=== PATIENT | female | born 1965 | race Caucasian/White ===

== ENCOUNTER → 2019-11-22 12:24 | Outpatient (CLI) | payer MEDICAID, SELFPAY ==
[2019-11-22 13:45] LABS: Basophils # 0.1 K/mm3 (0-0.2); Basophils % 0.6 % (0.1-2.0); Eosinophils # 0.1 K/mm3 (0.0-0.4); Eosinophils % 0.8 % (0.1-12.0); Hematocrit 42.3 % (37.0-47.0); Hemoglobin 14.9 g/dL (12.2-16.2); Lymphocytes # 2.3 K/mm3 (0.7-4.5); Lymphocytes % 29.8 % (10-50); Mean Corpuscular HGB Conc 35.2 g/dL (31.8-35.4); Mean Corpuscular Hemoglobin 32.3 pg (27.0-31.2); Mean Corpuscular Volume 91.7 fl (81-99); Mean Platelet Volume 8.2 fl (7.4-10.4); Monocytes # 0.4 K/mm3 (0.1-1.0); Monocytes % 4.9 % (1.7-9.3); Neutrophils # 4.9 K/mm3 (1.8-7.8); Neutrophils % 63.8 % (37.0-80.0); Platelet Count 320 K/mm3 (142-424); Red Blood Count 4.62 M/mm3 (4.20-5.40); Red Cell Distribution Width 13.3 % (11.5-17.5); White Blood Count 7.6 K/mm3 (4.8-10.8)
[2019-11-22 15:38] LABS: Chloride 103 mmol/L (98-107); Potassium 4.4 mmoL/L (3.5-5.1); Sodium 141 mmol/L (136-145)
[2019-11-22 15:40] LABS: Bilirubin,Unconjugated 0.4 mg/dL (0.0-1.1); Blood Urea Nitrogen 15 mg/dl (7-17); Estimated Glomerular Filt Rate 87 ml/min (>60); GFR (African American) 105 ML/MIN (>60)
[2019-11-22 15:41] LABS: Alanine Aminotransferase 22 U/L (12-78); Albumin Level 4.7 g/dl (3.5-5.0); Alkaline Phosphatase 134 U/L (38-126); Anion Gap 12.4 mEq/L (5-15); Aspartate Amino Transferase 27 U/L (14-36); Bilirubin,Indirect 0.4 mg/dL (0.0-0.9); Bilirubin,Total 0.4 mg/dl (0.2-1.3); Calcium 9.9 mg/dl (8.4-10.2); Carbon Dioxide 30 mmol/L (22.0-30.0); Chol/HDL Ratio 5.4 (1-3.5); Cholesterol 245 mg/dl (140-200); Glucose 86 mg/dl (74-100); HDL Cholesterol 45 mg/dl (40-60); Triglycerides 189 mg/dl (30-150); VLDL Cholesterol 38 mg/dL (0-40)
[2019-11-22 15:53] LABS: Direct LDL Cholesterol 171.98 mg/dL (100-129)
[2019-11-22 16:12] LABS: Thyroid Stimulating Hormone 2.09 uIU/mL (0.465-4.68)
== END ==
PROVIDERS: PCP Nurse Practitioner Family; Visit Provider Internal Medicine Cardiovascular Disease
DX: R00.2 Palpitations (principal); R06.00 Dyspnea, unspecified; R42 Dizziness and giddiness; R55 Syncope and collapse; E78.5 Hyperlipidemia, unspecified; I10 Essential (primary) hypertension; F17.200 Nicotine dependence, unspecified, uncomplicated
CPT/HCPCS: 36415; 80048; 80061; 80076; 84439; 84443; 85025; 93270

== ENCOUNTER → 2019-11-28 11:57 | Outpatient (CLI) | payer MEDICAID, SELFPAY ==
--- NOTE | 2019-11-28 11:59 | CA_ITS ---
APPROVED REPORT Membership Administrator: VLADIMIR Laterality: Bilateral Study Quality: Good Indications: dizziness Doppler Spectral Velocity Analysis dICA (R) 81.30/33.70 cm/s dICA (L) 80.60/35.70 cm/s Emmanuelle (R) 86.70/36.80 cm/s Emmanuelle (L) 67.20/31.90 cm/s pICA (R) 75.70/27.50 cm/s pICA (L) 69.70/25.00 cm/s dCCA (R) 58.20/18.10 cm/s dCCA (L) 69.00/26.90 cm/s pCCA (R) 147.10/45.30 cm/s pCCA (L) 70.30/25.30 cm/s Vert (R) 56.10/17.10 cm/s Vert (L) 44.90/20.00 cm/s ICA/CCA 1.40 ICA/CCA 1.20 Findings Duplex evaluation demonstrates stenosis of the right proximal internal carotid artery <20% with PSV <140 cm/sec, EDV <100 cm/sec, and IC/CC Ratio <4.0.Duplex evaluation demonstrates stenosis of the left proximal internal carotid artery <20% with PSV <140 cm/sec, EDV <100 cm/sec, and IC/CC Ratio <4.0.Antegrade flow seen bilateral vertebral arteries. Conclusion Duplex evaluation demonstrates stenosis of the right proximal internal carotid artery <20% with PSV <140 cm/sec, EDV <100 cm/sec, and IC/CC Ratio <4.0.Duplex evaluation demonstrates stenosis of the left proximal internal carotid artery <20% with PSV <140 cm/sec, EDV <100 cm/sec, and IC/CC Ratio <4.0.Antegrade flow seen bilateral vertebral arteries. Electronically signed by : Rolf Wahl MD 11/28/2019 16:06:28
--- NOTE | 2019-11-28 11:59 | CA_ITS ---
APPROVED REPORT EXAM: Comprehensive 2D, Doppler, and color-flow Echocardiogram Appeals Referee: Kira Zhao RDCS Ht: 5 ft 1 in Wt: 117lbs BSA: 1.50 BP: 110/66 mmHg Indications: SOA,SMOKER,HTN,HLP,DIZZINESS 2D Dimensions LVOT 2.18 cm (M/F) 1.5-2.5 M-Mode Dimensions RVDd 2.79 cm (0.9-2.6) LVDd 4.47 cm (3.5-5.7) LVDs 2.75 cm (3.5-5.7) IVSd 0.82 cm (0.6-1.1) PWd 0.89 cm (0.6-1.1) EF (Teich) 68.90% FS 38.50% EDV (Teich) 91.00 mL ESV (Teich) 28.30 mL LV Diastology E/A Ratio 0.87 Mitral Valve MV A Velocity 71.00 (40-130 cm/s) Left Ventricle Left atrium is mildly enlarged, left ventricle is normal size, mild concentric left ventricular hypertrophy, visually estimated ejection fraction 55% with no regional wall motion abnormality, grade 1 diastolic dysfunction seen without tissue Doppler evidence of raise left atrial pressure. Right Ventricle Right atrium is normal size, right ventricle is mildly enlarged with normal contractility. Aortic Valve Aortic valve is minimally thickened and fibrosed, there is no aortic stenosis, there is mild aortic insufficiency. Mitral Valve Mitral valve is grossly normal, there is mild mitral regurgitation. Tricuspid Valve Tricuspid valve is grossly normal, there is mild tricuspid regurgitation, calculated right ventricular systolic pressure is 32 mmHg. Pulmonic Valve Pulmonic valve is poorly visualized. Great Vessels Aortic root is normal size. Pericardium No significant pericardial effusion noted. Conclusion 1. Mildly enlarged left atrium, normal left ventricular size, mild concentric left ventricular hypertrophy, visually estimated ejection fraction of 55% with no regional wall motion abnormality, grade 1 diastolic dysfunction seen without tissue Doppler evidence of raise left atrial pressure. 2. Mildly enlarged right ventricle with normal contractility. 3. Mild aortic, mild mitral and tricuspid regurgitation. Calculated right ventricular systolic pressure 32 mmHg. 4. No significant pericardial effusion noted. Electronically signed by : Mario Lucio, 11/29/2019 13:44:51
--- NOTE | 2019-11-28 12:07 | CT_ITS ---
PROCEDURE: CT CHEST WO CON CLINICAL INDICATION: tob abuse dyspnea episodes of heart flutter, soa current smoker no prior COMPARISON: No exams were available for comparison TECHNIQUE: Axial images obtained with sagittal and coronal reformats. All CT scans at the facility use one or more dose reduction, viz: automated exposure control, ma/kV adjustment per patient size (including targeted exams where dose is matched to indication, i.e. head), or iterative reconstruction technique. FINDINGS: HEART AND MEDIASTINAL STRUCTURES: Unremarkable. LUNGS AND PLEURAL SPACES: Inflation with attenuation of the peripheral pulmonary vessels suggesting COPD. No lobar consolidation or collapse. No suspicious pulmonary nodules. There are minimal atelectatic changes in the right middle lobe medially. There is a calcified granuloma in the right lower lobe. BONY STRUCTURES: Small Schmorl's node is present along the superior endplate of T12. UPPER ABDOMEN: There is thickening of the esophagus and gastroesophageal junction. This is nonspecific and may only be due to nondistention. Neoplasm or esophagitis is also considered in the differential diagnosis. Barium swallow or upper endoscopy may provide further evaluation. There is a 3 mm nonobstructing stone in the upper pole of the right kidney ADDITIONAL FINDINGS: A nodular density is present in the subareolar region on the right of the right breast measuring 9 mm. Mammogram and ultrasound suggested for further evaluation. IMPRESSION: 1. Findings consistent with COPD. Minimal atelectatic change right middle lobe. 2. Nonspecific thickening of the esophagus as described above. 3. 9 mm nodular lesion in the subareolar region on the right for which ultrasound and mammogram is suggested for further evaluation. 4. Nonobstructing right nephrolithiasis Dictated by: Rolf Wahl MD 11/29/2019 11:40 Rolf Wahl MD in [place] 11/29/2019 11:40
== END ==
PROVIDERS: PCP Nurse Practitioner Family; Visit Provider Internal Medicine Cardiovascular Disease
DX: R00.2 Palpitations (principal); R06.00 Dyspnea, unspecified; R55 Syncope and collapse; R42 Dizziness and giddiness; I10 Essential (primary) hypertension; E78.5 Hyperlipidemia, unspecified; F17.200 Nicotine dependence, unspecified, uncomplicated
CPT/HCPCS: 71250; 93306; 93880

== ENCOUNTER 2022-05-28 07:55 | Emergency (ER) | payer SELFPAY ==
[2022-05-28] VITALS (9 sets, daily range): BP systolic 137–177; BP diastolic 77–105; PULSE 62–89; RESP 12–20; TEMP 36.7–36.8; O2SAT 96–98; BMI 24.5
--- NOTE | 2022-05-28 08:00 | ECG_ITS ---
APPROVED REPORT Exam: Resting ECG HR:88 bpm ECG Measurements Heart Rate 88 AXES ND 149 P 72 QRSd 82 QRS 73 QT 336 T 80 QTc 382 Conclusion SINUS RHYTHM POSSIBLE RIGHT VENTRICULAR CONDUCTION DELAY [RSR (QR) IN V1/V2] SEPTAL MYOCARDIAL INFARCTION , OF INDETERMINATE AGE [40+ ms Q WAVE IN V1/V2] ABNORMAL ECG UNCONFIRMED REPORT Electronically signed by : Mark Pelayo MD 05/28/2022 15:12:53
--- NOTE | 2022-05-28 08:15 | PC.NURSE ---
ER at BS for pt sari; Spouse at BS
--- NOTE | 2022-05-28 08:28 | PC.NURSE ---
at bs with MD, discussing bp. PT states she is dizzy but has been for months, this is no new symptom. denies any GLASER, new dizziness, chest pain at this time.
[2022-05-28 08:30] LABS: Blood Urea Nitrogen 21 mg/dl (7-17); Calcium 9.5 mg/dl (8.4-10.2); Carbon Dioxide 29 mmol/L (22.0-30.0); Chloride 102 mmol/L (98-107); Creatinine Clearance Estimated 71 mL/min (50-200); Estimated Glomerular Filt Rate 74 ml/min (>60); GFR (African American) 89 ML/MIN (>60); Glucose 108 mg/dl (74-100); Sodium 139 mmol/L (136-145)
--- NOTE | 2022-05-28 08:32 | HMH.EDGENADL ---
Discharge Plan Disposition Patient Disposition: Home, Self-Care Condition: Good Prescriptions Prescriptions: No Action lisinopril 20 mg tablet 20 mg PO DAILY propranolol 20 mg tablet 20 mg PO BID Qty: 60 3RF rosuvastatin [Crestor] 20 mg tablet 20 mg PO DAILY Referrals Follow up/Referrals: Provider,Referral, [Primary Care Provider] - See instructions Activity Restrictions/Add. Instructions Additional Instructions/Restrictions: Increase your metoprolol from 25 to 37.5 daily. Follow-up with your primary care provider regarding this change and continue taking your blood pressure twice daily (morning and night). If you have any other concerning symptoms including headache, passing out, chest pain, shortness of breath, or any other concerns, return to the ER or your primary care provider for further evaluation. Clinical Impressions Clinical Impression: HTN (hypertension) Qualifiers: Hypertension type: unspecified Qualified Code(s): I10 - Essential (primary) hypertension Discharge ED Provider: Baltazar Shields General Adult HPI General Chief complaint: Chest Pain Stated complaint: High BP Time Seen by Provider: 05/28/22 07:58 Mode of Arrival: Ambulatory Source of Information: Patient Limitations: No Limitations Description of Symptoms (Recalled from ER Triage Doc. by RN): pt comes in with high blood pressure. pt reports feeling lightheaded for a few weeks now. pt had echo done yesterday in [place], when her blood pressure was taken there it was elevated. pt took blood pressure this am and it was elevated. pt became anxious and felt heart palpitations. pt took metoprolol 25 mg approx. 0745. History of Present Illness HPI narrative: This is a 56-year-old female with history of hypertension, hyperlipidemia, peripheral vertigo, anxiety who is presenting with high blood pressure. Patient states that she was seen for cardiac echo a few days prior to arrival and while she was there, they took her blood pressure and told her that it was too high and to follow-up with her primary care provider. She has since followed up 4 days prior to arrival and was started on metoprolol 25. Patient had a blood pressure cuff 2 days prior to arrival and has been taking it when she wakes up and realizing that her blood pressure was high, so comes to the ER for further evaluation. Denies chest pain, nausea, vomiting, diaphoresis, neurologic deficits, abdominal pain, back pain, flank pain, syncope, near syncope, headache, vision changes, or any other concerns. Related Data Home Medications Medication Instructions Recorded Confirmed lisinopril 20 mg tablet 20 mg PO DAILY High blood pressure 11/22/19 05/28/22 rosuvastatin 20 mg tablet (Crestor) 20 mg PO DAILY Cholesterol 05/28/22 05/28/22 Previous Rx's Medication Instructions Recorded propranolol 20 mg tablet 20 mg PO BID #60 tabs 11/22/19 Allergies Allergy/AdvReac Type Severity Reaction Status Date / Time No Known Allergies Allergy Verified 05/28/22 08:15 [facility] Disclaimer: The information contained in this section may have been updated after the patient was seen, as this information can be updated by other users. Social History Smoking Status: Current every day smoker alcohol intake: never current occupational status: employed Travel in the last 8 weeks: Inside the [place] ROS Obtained: Yes All systems reviewed & no additional complaints except as documented Physical Exam General General appearance: alert, in no apparent distress and anxious Head Head exam: atraumatic, normocephalic and normal inspection Eye Eye exam: Present normal appearance, PERRL and EOMI ENT ENT exam: Present normal exam, normal oropharynx, mucous membranes moist, TM's normal bilaterally and normal external ear exam Neck Neck exam: Present normal inspection, full ROM and trachea midline; Absent meningismus or l
[2022-05-28 08:33] LABS: Basophils # 0.1 K/mm3 (0-0.2); Basophils % 1.9 % (0.1-2.0); Eosinophils # 0.1 K/mm3 (0.0-0.4); Eosinophils % 1.7 % (0.1-12.0); Hematocrit 50.1 % (37.0-47.0); Hemoglobin 16.7 g/dL (12.2-16.2); Lymphocytes # 2.2 K/mm3 (0.7-4.5); Lymphocytes % 30.2 % (10-50); Mean Corpuscular HGB Conc 33.4 g/dL (31.8-35.4); Mean Corpuscular Hemoglobin 30.9 pg (27.0-31.2); Mean Corpuscular Volume 92.6 fl (81-99); Mean Platelet Volume 8.8 fl (7.4-10.4); Monocytes # 0.4 K/mm3 (0.1-1.0); Monocytes % 5.6 % (1.7-9.3); Neutrophils # 4.3 K/mm3 (1.8-7.8); Neutrophils % 60.7 % (37.0-80.0); Platelet Count 297 K/mm3 (142-424); Red Blood Count 5.41 M/mm3 (4.20-5.40); Red Cell Distribution Width 13.1 % (11.5-17.5); White Blood Count 7.1 K/mm3 (4.8-10.8)
--- NOTE | 2022-05-28 08:34 | PC.NURSE ---
pt ambulatory to the restroom without complications; spouse at BS
--- NOTE | 2022-05-28 08:37 | PC.NURSE ---
called pharmacy for metoprolol
[2022-05-28 08:43] LABS: Troponin I < 0.01 ng/ml (0.00-0.034)
--- NOTE | 2022-05-28 09:33 | PC.NURSE ---
KRISTIE ARIAS at for update on POC
== END 2022-05-28 09:49 | disposition home or self-care (01) ==
PROVIDERS: Emergency Provider Emergency Medicine
DX: I10 Essential (primary) hypertension (principal)
CPT/HCPCS: 80048; 84484; 85025; 93005; 99284; 99285

== ENCOUNTER → 2022-08-26 14:31 | Outpatient (CLI) | payer SELFPAY ==
--- NOTE | 2022-08-26 14:35 | US_ITS ---
FINAL REPORT TECHNIQUE: Ultrasound images of the kidneys and bladder were obtained. CLINICAL HISTORY: PRIMARY HYPERTENSION FINDINGS: The right kidney measures 8.6 cm in length. It is normal in echogenicity. There is no hydronephrosis. In the right upper pole there is an echogenic focus that may represent a nonobstructing renal stone. The left kidney measures 9.5 cm in length. It is normal in echogenicity. There is no hydronephrosis. IMPRESSION: No hydronephrosis. Right upper pole echogenic focus that may represent a nonobstructing renal stone. Reviewed, Interpreted and Dictated by Lane Lawrence III, MD Transcribed by Ruby Carbajal Authenticated and [facility]
== END ==
PROVIDERS: PCP Family Medicine; Visit Provider Family Medicine
DX: I10 Essential (primary) hypertension (principal)
CPT/HCPCS: 76770

== ENCOUNTER → 2022-12-02 12:41 | Outpatient (CLI) | payer SELFPAY ==
--- NOTE | 2022-12-02 | CA_ITS ---
FINAL REPORT TECHNIQUE: Real-time imaging was performed of the extracranial carotid arteries in transverse and longitudinal planes, with color duplex evaluation of blood flow velocity. Spectral analysis was performed. The cervical vertebral arteries were also examined. CLINICAL HISTORY: ringing in ears, smoker COMPARISON: None FINDINGS: NASCET technique is utilized for stenosis evaluation. Right carotid system (centimeters/second): CCA: 77 ICA: 91 Vertebral artery: Antegrade ICA/CCA ratio: 1.78 Mild plaque is identified at the bifurcation. Left carotid system (centimeters/second): CCA: 61 ICA: 106 Vertebral artery: Antegrade ICA/CCA ratio: 1.93 Mild plaque is identified at the bifurcation. IMPRESSION: <50% right ICA stenosis. <50% left ICA stenosis. Reviewed, Interpreted and Dictated by Floyd Dorado MD Transcribed by Paty Blanca Authenticated and [facility]
== END ==
PROVIDERS: PCP Family Medicine; Visit Provider Family Medicine
DX: R42 Dizziness and giddiness (principal); I10 Essential (primary) hypertension
CPT/HCPCS: 93880

== ENCOUNTER 2023-11-03 07:27 | Outpatient (CLI) | payer SELFPAY ==
--- NOTE | 2023-11-03 07:33 | CA_ITS ---
APPROVED REPORT EXAM: Comprehensive 2D, Doppler, and color-flow Echocardiogram Gang Boss: Lori Shea CRT Ht: 5 ft 2 in Wt: 130lbs BSA: 1.59 BP: 131/72 mmHg Indications: Shortness of Breath, Palpitations, Hyperlipidemia, Hypertension/HDD, Smoker 2D Dimensions Left Atrium 3.16 cm LVEF (Schafer's) 63.60 % LVOT 1.88 cm (M/F) 1.5-2.5 LV Volume 63.20 mL LA Volume 23.70 mL LA Volume Index 14.90 mL/m2 (M/F) 16-34 EF AP4 69.80 % EF AP2 56.6 % EF BP 63.6 % GL Strain -20.9 % M-Mode Dimensions RVDd 2.45 cm (0.9-2.6) LVDd 3.75 cm (3.5-5.7) Ao Diam 3.66 cm (2.0-3.7) LVDs 2.31 cm (3.5-5.7) IVSd 1.25 cm (0.6-1.1) PWd 0.91 cm (0.6-1.1) EF (Teich) 69.50% FS 38.40% EDV (Teich) 60.00 mL ESV (Teich) 18.30 mL LV Diastology MED E' 10.5 (>= 7 cm/sec) MED A' 13.70 cm/s LAT E' 6.8 (>= 10 cm/sec) LAT A' 10.20 cm/s Aortic Valve AoV Peak Mich. 127.0 (50-130 cm/s) AI PHT 644.00 ms AO Peak GR. 6.50 mmHg Tricuspid Valve TR P. Velocity 234.00 cm/s RAP Estimate 10.00 mmHg RVSP 32.00 mmHg Left Ventricle The left ventricle is normal size. The left ventricular systolic function is normal. The left ventricular ejection fraction is within the normal range. There is increased LV wall thickness. There is normal LV segmental wall motion. Transmitral Doppler flow pattern suggests impaired LV relaxation. LVEF is 55%. Right Ventricle Right ventricle is mildly dilated. The right ventricular systolic function is normal. Atria Left atrium is mildly dilated. Right atrium is mildly dilated. There is no Doppler evidence of interatrial shunt. Aortic Valve The aortic valve is mildly thickened. There is no aortic valvular stenosis. Mild aortic regurgitation. Mitral Valve The mitral valve leaflets are mildly thickened. No evidence of mitral valve stenosis. Trace mitral regurgitation. Tricuspid Valve The tricuspid valve leaflets are thin and pliable. Mild tricuspid regurgitation. RVSP is 25-30 mmHg. Pulmonic Valve The pulmonary valve is normal in structure. Trace pulmonic regurgitation. Great Vessels The aortic root is normal in size. The ascending aorta is normal in size. IVC is normal in size and collapses >50% with inspiration. Pericardium There is no pericardial effusion. Other Information Study Quality: Fair Conclusion Normal biventricular systolic function. Mild RV dilation. Mild biatrial dilation. Mild AI, mild TR. RVSP 25-30 mmHg. Electronically signed by : Leydi Bocanegra MD 11/08/2023 11:52:24
== END 2023-11-03 23:59 | disposition home or self-care (01) ==
LOC: RT 07:28
PROVIDERS: PCP Family Medicine; Visit Provider Nurse Practitioner Family
DX: I35.1 Nonrheumatic aortic (valve) insufficiency (principal); I10 Essential (primary) hypertension; R42 Dizziness and giddiness
CPT/HCPCS: 93306

== ENCOUNTER 2024-08-01 07:32 | Outpatient (CLI) | payer SELFPAY ==
--- NOTE | 2024-08-01 | MM_ITS ---
PROCEDURE INFORMATION: Exam: MG Bilateral Screening 3D Mammography Exam date and time: 08/01/2024 8:06 AM Age: 59 years old Clinical indication: Screening examination TECHNIQUE: Imaging protocol: Bilateral Screening tomosynthesis and 2D mammography including computer-aided detection (CAD) when performed. COMPARISON: 1. MG MY Digital Nakul Screen BILAT 01/12/2018 9:44 AM 2. US - MY US Breast LTD RT 01/24/2018 10:36 AM FINDINGS: MAMMOGRAPHY: Breast composition: There are scattered areas of fibroglandular density. Mass: 0.7 cm mass upper inner left breast middle depth. Architectural distortion: None. Calcifications: No suspicious calcifications. Asymmetric density: None. Skin thickening: None. Axillary adenopathy: None. IMPRESSION: Subcentimeter left breast mass. Recommend further evaluation with left breast ultrasound ASSESSMENT: BI-RADS Category 0: Incomplete- Need Additional Imaging Evaluation.
== END 2024-08-01 23:59 | disposition home or self-care (01) ==
LOC: RAD 07:33
PROVIDERS: PCP Family Medicine; Visit Provider Family Medicine
DX: Z12.31 Encounter for screening mammogram for malignant neoplasm of breast (principal); N63.22 Unspecified lump in the left breast, upper inner quadrant; R92.323 Mammographic fibroglandular density, bilateral breasts
CPT/HCPCS: 77063; 77067

== ENCOUNTER 2024-09-02 12:17 | Outpatient (CLI) | payer SELFPAY ==
--- OUTSIDE RECORDS SUMMARY | 2024-07-26 12:00 | XMS_ITS ---
Author Organization [facility] Address [address] 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 Name Role Phone Capri Ward Unavailable [phone] Will Montiel Unavailable [phone] Allergies No Known Allergies REASON FOR VISIT BP running high Medications Medication SIG (Take, Route, Frequency, Duration) Notes Start Date End Date Status Rosuvastatin Calcium 20 MG 1 tab(s) oral ly once a day Active Triamterene-HCTZ 37.5-25 MG 1 tablet in the morning Orally Once a day Active Lisinopril 20 MG 2 tab(s) orally At B ed Time Active Metoprolol Succinate ER 50 MG 2 tabs Orally Once a day Act deanne Vitamin B12 1000 MCG 1 tablet Orally Onc e a day 03/10/2023 Active Social History Tobacco Use: Social History Observation Description Date Details (start date - stop date) Current Smoker NA - NA CURRENT TOBACCO USE: Question Answer Notes Are you a: current every day smoker 5 Cigar ettes Per Day Vital Signs Blood pressure systolic 184 mm Hg 07/27/19 25 Blood pressure diastolic 110 mm Hg 025 Heart Rate 97 /min 07/26/2024 Height 61 in 07/26/2024 Weight 134.4 lbs 07/26/2024 BMI 25.39 kg/m2 07/26/2024 Encounters Encounter Location Date Provider Diagnosis [facility] [address] [facility] [address] [place] [id number] 07/26/2024 Will Montiel Primary hypertension I10 Assessments Encounter Date Diagnosis (ICD Code) Assessment Notes Treatment Notes Treatment Clinical Notes Section Notes 07/26/2024 Primary hypertension (ICD-10 - I10) Plan Of Treatment Medication Medication Name Sig Start Date Stop Date Notes Triamterene-HCTZ 37.5-25 MG 1 tablet in the morning Orally Once a day Lisinopril 20 MG 2 tab(s) orally At Bed Time Metoprolol Succinate ER 50 MG 2 tabs Orally Once a day Next Appt Details Follow Up: 1 Week, Reason: Provider Name:Will Dave ry, 02/03/2025 10:15:00 AM, [address], [address], [place], [place], [id number], Progress Notes * LIDIA MILNEREDOB:1965 ([age] yo F)Acc No.[id number]:07/26/2024 Progress Notes Patient: NASH ISLAS Provider: Shimon Montiel M.D. :1965 A ge:59 Y S ex:Female Date:07/26/2024 Address:[address] [place] [address], [id number] Subjective: * Chief Complaints: * 1 . BP running high. * HPI: C ardiology: 59 year old female presents with c/o Dizziness. c/o BloodPressure at Home T he pt states she has had some dizziness over the past few days and her BP today was at 151/108. Pt states she has been feeling jittery as well. Denies : Chest Pain. D enies : Short of Breath. D enies : Palpitations. * ROS: D ERMATOLOGY: no R gaston. n o H emmy. G ASTROENTEROLOGY: no N ausea. n o V omiting. n o D iarrhea.? U ROLOGY: no D ifficulty urinating. n o B lood in urine. * Medical History: H ypertension, Hyperlipidemia, Allergic Rhinitis, Has seen Dr. Jackson, [facility] heart cath, [facility]. * Surgical History: C holecystectomy 2014, Hysterectomy 2012. * Family History: F ather: . M other: , diagnosed with Diabetes, Heart Disease. 1 son(s) , 2 daughter(s) - healthy. . * Social History: C URRENT TOBACCO USE: Yes A re you a: c urrent every day smoker 5 Cigarettes Per Day.?Caffeine: yes, frequency: 2 cups of coffee Per Day. Exercise: yes, water aerobics. Marital Status: . Alcohol: no. Recreational drug use: no. * Medications: T aking Vitamin B12 1000 MCG Tablet Extended Release 1 tablet Orally Once a day , Taking Rosuvastatin Calcium 20 MG Tablet 1 tab(s) orally once a day , Taking Triamterene-HCTZ 37.5-25 MG Tablet 1 tablet in the morning Orally Once a day , Taking Lisinopril 20 MG Tablet 1 tab(s) orally At Bed Time , Taking Metoprolol Succinate ER 50 MG Tablet Extended Release 24 Hour Take 1 tablet by mouth once daily , Discontinued Medrol 4 MG Tablet Therapy Pack as directed orally daily , Medication List reviewed and reconciled with the patient * Allergies: N .K.D.A. Objective: * Vitals: W t: 134.4, Temp: 98.1, BP: 184/110, HR: 97, Nurse: JOHN, Ht: 61, Repeat BP: 170/102, BMI:25.39. * Examination: G eneral Examination: General Appearance: N AD. Heart: R SR. Lungs: c lear to auscultation. Assessment: * Assessment: 1. P rimary hypertension - I10 (Primary) Plan: * Treatment: * Follow Up: 1 Week * Billing Information: * Visit Code: 91424 Office Visit, Est Pt., Level 2. * Procedure Codes: * Electronic signature of Deneen Montiel MD on 09/02/2024 at 12:29 PM EDT Sign off status: Pending * Provider: Shimon Montiel M.D. Date: 0 07/26/2024 Generated for Norma ferro/Vikram/Vern on: 0 09/02/2024 12:29 PM EDT History and Physical Notes * HPI (History of Present Illness) Category Sub-Category Detail Notes Category Not es Cardiology Short of Breath Chest Pain Palpitations Dizziness BloodPressure at Home The pt states she has had some dizziness over the past few days and her BP today was at 151/108. Pt states she has been feeling jittery as well Examination Category Sub-Category Detail Notes Category Not es General Examination Heart: RSR Lungs: clear to auscultatio n General Appearance: NAD
--- OUTSIDE RECORDS SUMMARY | 2024-08-02 06:45 | XMS_ITS ---
Author Organization [facility] Address [address] [facility] [address] [place] [id number] Care Team Providers Care Advanced Practice Registered Nurse Name Role Phone Capri Wardory Unavailable [phone] Will Montiel Unavailable [phone] Allergies No Known Allergies Results Component Value Reference Range Notes P-Basic Metabolic Panel (BMP ) Reviewed date:08/06/2024 11:43:47 AM Interpretation: Normal Performing Lab: Notes/Report: Test performed by [facility] [address] [place] [address] , [address], [place] [address] Chris Dubois MD, Roof Painter CLIA: [id number] Sodium 142 135-145 mmol/L Potassium 4.6 3.5-5.3 mmol/L Chloride 104 97-108 mmol/L CO2 27 22-32 mmol/L Glucose 90 65-99 mg/dL BUN 18 8-23 mg/dL Creatinine 0.87 0.50-1.00 mg/dL Calcium 9.9 8.6-10.4 mg/dL eGFR by Creatinine 76 >59 mL/min/1.73m2 P-Lipid Panel Reviewed date:08/06/2024 11:43:47 AM Interpretation:chol 208, trigs 188, hdl 37, chol/hdl 5.62, non-hdl 171, ldl 133, ldl/hdl 3.6 Performing Lab: Notes/Report: Test performed by [facility] [address] [place] [address] , [address], [place] [address] Chris Dubois MD, Roof Painter CLIA: [id number] Cholesterol 208 <200 mg/dL Triglycerides 188 <150 mg/dL HDL Cholesterol 37 >39 mg/dL Cholesterol / HDL Ratio 5.62 0.00-4.44 Ratio Non-HDL Cholesterol 171 <130 mg/dL LDL Cholesterol (Calculation) 133 <130 mg/dL LDL Cholesterol Levels* Less than 100 mg/dL Optimal 100 to 129 mg/dL Near Optimal/ Above Optimal 130 to 159 mg/dL Borderline High 160 to 189 mg/dL High 190 mg/dL and above Very High * Categories as recommended by the 2004 ATPIII guidelines LDL/HDL Ratio 3.6 <3.3 Ratio LDL Cholesterol Patient History Test Date: 10/02/2023 LDL Results: 198 Units: mg/dL % Change: - Test Date: 08/02/2024 LDL Results: 133 Units: mg/dL % Change: -32% P-TSH Reviewed date:08/06/2024 11:43:47 AM Interpretation: Normal Performing Lab: Notes/Report: Test performed by [facility] [address] [place], [place] [address] Chris Dubois MD, Roof Painter CLIA: [id number] TSH 2.29 0.43-5.25 mU/L REASON FOR VISIT 1 week w bw Medications Medication SIG (Take, Route, Frequency, Duration) Notes Start Date End Date Status Rosuvastatin Calcium 20 MG 1 tab(s) oral ly once a day Active Triamterene-HCTZ 37.5-25 MG 1 tablet in the morning Orally Once a day Active Vitamin B12 1000 MCG 1 tablet Orally Onc e a day 03/10/2023 Active Lisinopril 20 MG 2 tab(s) orally At B ed Time Active Metoprolol Succinate ER 50 MG 2 tabs Orally Once a day Act deanne Social History Tobacco Use: Social History Observation Description Date Details (start date - stop date) Current Smoker NA - NA CURRENT TOBACCO USE: Question Answer Notes Are you a: current every day smoker 5 Cigar ettes Per Day Vital Signs Blood pressure systolic 130 mm Hg 08/03/19 25 Blood pressure diastolic 80 mm Hg 025 Heart Rate 69 /min 08/02/2024 Height 61 in 08/02/2024 Weight 134.8 lbs 08/02/2024 BMI 25.47 kg/m2 08/02/2024 Encounters Encounter Location Date Provider Diagnosis [facility] [address] [place] [id number] 08/02/2024 Will Montiel Primary hypertension I10 and Hyperlipidemia, unspecified hyperlipidemia type E78.5 Assessments Encounter Date Diagnosis (ICD Code) Assessment Notes Treatment Notes Treatment Clinical Notes Section Notes 08/02/2024 Primary hypertension (ICD-10 - I10) 08/02/2024 Hyperlipidemia, unspecified hyperlipidemia type (ICD-10 - E78.5) Plan Of Treatment Next Appt Details Follow Up: 6 Months, Reason: Provider Name:Will Dave ry, 02/03/2025 10:15:00 AM, [address], [address], [place], [id number], Progress Notes * BARBARA MILNEROB:1965 ([age] yo F)Acc No.[id number]:08/02/2024 Progress Notes Patient: Camilla NASH ARREDONDO Provider: Shimon Montiel M.D. :1965 A ge:59 Y S ex:Female Date:08/02/2024 Address:[address] [place], [id number] Subjective: * Chief Complaints: * 1 . 1 week w bw. * HPI: C ardiology: 59 year old female presents with c/o Blood Pressure Elevated?Pt is here today for a f/u on elevated BP. Pt sts she does check her BP at home and sts it has been running in the 130-140s over 80-90s. H PI: c/o Patient is here today for P t sts she needs fasting labs done. * ROS: D ERMATOLOGY: no R gaston. n o H emmy. G ASTROENTEROLOGY: no N ausea. n o V omiting. n o D iarrhea.? U ROLOGY: no D ifficulty urinating. n o B lood in urine. * Medical History: H ypertension, Hyperlipidemia, Allergic Rhinitis, Has seen Dr. Jackson, [facility], [facility]. * Surgical History: C holecystectomy 2014, [...] day , Taking Lisinopril 20 MG Tablet 2 tab(s) orally At Bed Time , Taking Metoprolol Succinate ER 50 MG Tablet Extended Release 24 Hour 2 tabs Orally Once a day , Medication List reviewed and reconciled with the patient * Allergies: N .K.D.A. Objective: * Vitals: W t: 134.8, Temp: 97.7, BP: 130/80, HR: 69, Nurse: mmh, Ht: 61, BMI:25.47. * Examination: G eneral Examination: General Appearance: N AD. Heart: R SR. Lungs: c lear to auscultation. Assessment: * Assessment: 1. P rimary hypertension - I10 (Primary) 2 . H yperlipidemia, unspecified hyperlipidemia type - E78.5 Plan: * Treatment: Value Reference Range B UN 18 8-23 - mg/dL * C alcium 9.9 8.6-10.4 - mg/dL * C hloride 104 97-108 - mmol/L * C O2 27 22-32 - mmol/L * C reatinine 0.87 0.50-1.00 - mg/dL * G lucose 90 65-99 - mg/dL * P otassium 4.6 3.5-5.3 - mmol/L * S odium 142 135-145 - mmol/L * e GFR by Creatinine 76 >59 - mL/min/1.73m2 * Augusta Soni 08/06/2024 11:4 3:39 AM > See phone encounter 2.?Hyperlipidemia, unspecified hyperlipidemia type?LAB: P-Lipid Panel (Collection Date & Time - 08/02/2024 10:10 AM)?chol 208, trigs 188, hdl 37, chol/hdl 5.62, non-hdl 171, ldl 133, ldl/hdl 3.6* Value Reference Range C holesterol / HDL Ratio 5.62 H 0.00-4.44 - Ratio * C holesterol 208 H <200 - mg/dL * H DL Cholesterol 37 L >39 - mg/dL * L DL Cholesterol (Calculation) 133 H <130 - mg/d L * L DL/HDL Ratio 3.6 H <3.3 - Ratio * N on-HDL Cholesterol 171 H <130 - mg/dL * T riglycerides 188 H <150 - mg/dL * Augusta Soni 08/06/2024 11:4 3:39 AM > See phone encounter ?LAB: P-TSH (Collection Date & Time - 08/02/2024 10:10 AM)?Normal* Value Reference Range T SH 2.29 0.43-5.25 - mU/L * Augusta Soni 08/06/2024 11:4 3:39 AM > See phone encounter * Follow Up: 6 Months * Billing Information: * Visit Code: 83816 Office Visit, Est Pt., Level 2. * Procedure Codes: * Electronic signature of Deneen Montiel MD on 09/02/2024 at 12:28 PM EDT Sign off status: Pending * Provider: Shimon Montiel M.D. Date: 0 08/02/2024 Generated for Norma ferro/Vikram/eTransmitting on: 0 09/02/2024 12:28 PM EDT History and Physical Notes * HPI (History of Present Illness) Category Sub-Category Detail Notes Category Not es Cardiology Blood Pressure Elevated Pt is he re today for a f/u on elevated BP. Pt sts she does check her BP at home and sts it has been running in the 130-140s over 80-90s HPI Patient is here today for Pt sts she needs fasting labs done Examination Category Sub-Category Detail Notes Category Not es General Examination Heart: RSR Lungs: clear to auscultatio n General Appearance: NAD
--- OUTSIDE RECORDS SUMMARY | 2024-08-22 04:40 | XMS_ITS ---
[facility] Address [address] [place] [id number] Care Team Providers Care Gastroenterology Professor Name Role Phone Capri Ward Unavailable [phone] REASON FOR VISIT abnormal Mammogram Problems Problem Type SNOMED Code ICD Code Onset Dates Problem Status W/U Status Risk Notes Problem 820981322 Abnormal mammogram (R92.8) Active confirmed Encounters Encounter Location Date Provider Diagnosis [facility] [address] [facility] [address] [facility] [address] [place] [id number] 08/22/2024 Capri Ward Abnormal mammogram R92.8 Assessments Encounter Date Diagnosis (ICD Code) Assessment Notes Treatment Notes Treatment Clinical Notes Section Notes 08/22/2024 Abnormal mammogram (ICD-10 - R92.8) Plan Of Treatment Pending Test Test Name Order Date Ultrasound : Breast, left 08/22/2024 Next Appt Details Provider Name:Will Dave ry, 02/03/2025 10:15:00 AM, [address] [facility] [address] [facility], [address], [facility] [place], [id number], Progress Notes * BARBARA MILNEROB:1965 (4 1 yo F)Acc No.[id number]:08/22/2024 Patient: NASH ISLAS :1965 A ge:59 Y S ex:Female Address:[address] [place], [address] Subjective: * Chief Complaints: * a bnormal Mammogram * Medical History: * Surgical History: * Hospitalization/Major Diagno stic Procedure: * Medications: Objective: * Vitals: * Physical Examination: Assessment: * Assessment: 1. A bnormal mammogram - R92.8 (Primary) Plan: * Treatment: * Procedure Codes: * true * Date: Generated for Norma ferro/Vikram/Felizitting on: 0 09/02/2024 12:28 PM EDT
--- NOTE | 2024-09-02 | US_ITS ---
PROCEDURE INFORMATION: Exam: US Left Breast, Complete Exam date and time: 09/02/2024 1:07 PM Age: 59 years old Clinical indication: Callback from screening for left breast mass. TECHNIQUE: Imaging protocol: Complete ultrasound of all four quadrants of the left breast and the retroareolar regions, including ultrasound of the axilla when performed. COMPARISON: MG MM DIG SCREENING MAMM BI W/CAD 08/01/2024 8:06 AM FINDINGS: ULTRASOUND: Breast ultrasound findings: Left breast ultrasound: At 10 o'clock 2 cm from the nipple there is a benign simple cyst measuring 0.9 cm corresponding to the mammographic finding question. Incidentally noted probable complicated cysts at 12 o'clock 1 cm the nipple measuring 0.5 x 0.6 x 0 4 cm. Elsewhere there scattered benign simple and clustered microcysts. No abnormal nodes in the axilla. IMPRESSION: 1. Screening detected mass corresponds to a benign simple cyst. 2. Incidentally noted probable complicated cyst at 12 o'clock is probably benign. Recommend six-month follow-up left breast ultrasound to ensure stability ASSESSMENT: BI-RADS Category 3: Probably benign.
--- OUTSIDE RECORDS SUMMARY | 2024-09-02 12:29 | XMS_ITS | Patient Health Record ---
Author Organization [facility] Address [address] [id number] Care Team Providers Care Pile Driving Supervisor Name Role Phone Capri Ward Unavailable [phone] Heydi Burkett Unavailable [phone] Will Montiel Unavailable [phone] Regina Bustamante Unavailable [phone] Alie Ybarra Unavailable [phone] Allergies No Known Allergies Results Component Value Reference Range Notes P-TSH Reviewed date:08/06/2024 11:43:47 AM Interpretation: Normal Performing Lab: Notes/Report: Test performed by [facility] [address] [place] [address] , [place] [address] Chris Dubois MD, Associate Professor Of Surgery CLIA: [id number] TSH 2.29 0.43-5.25 mU/L P-Lipid Panel Reviewed date:08/06/2024 11:43:47 AM Interpretation:chol 208, trigs 188, hdl 37, chol/hdl 5.62, non-hdl 171, ldl 133, ldl/hdl 3.6 Performing Lab: Notes/Report: Test performed by [facility] [address] [place], [place] [address] [place] , [address], [place] [address] Chris Dubois MD, Associate Professor Of Surgery CLIA: [id number] Cholesterol 208 <200 mg/dL Triglycerides 188 <150 [...] Results: 133 Units: mg/dL % Change: -32% P-Basic Metabolic Panel (BMP ) Reviewed date:08/06/2024 11:43:47 AM Interpretation: Normal Performing Lab: Notes/Report: Test performed by [facility] [address] [place] [address] [place] [address], [place] [address] Chris Dubois MD, Associate Professor Of Surgery CLIA: [id number] Sodium 142 135-145 mmol/L Potassium 4.6 3.5-5.3 mmol/L Chloride 104 97-108 mmol/L CO2 27 22-32 mmol/L Glucose 90 65-99 mg/dL BUN 18 8-23 mg/dL Creatinine 0.87 0.50-1.00 mg/dL Calcium 9.9 8.6-10.4 mg/dL eGFR by Creatinine 76 >59 mL/min/1.73m2 CBC Fingerstick (in house) Reviewed date:10/03/2023 04:40:01 PM Interpretation: Performing Lab: Notes/Report: wbc 8.6 3.5 - 10 lym 26.1 15 - 50 mid 5.6 2 - 15 gran 68.3 35 - 80 rbc 5.03 3.5 - 5.5 hgb 16.0 11.5 - 16.5 hct 47.0 35 - 55 mcv 93.4 75 - 100 mch 31.8 25 - 35 mchc 34.0 31 - 38 plat 268 100 - 400 Glycohemoglobin A1c (in hous e) Reviewed date:10/03/2023 04:40:19 PM Interpretation:5.4% Performing Lab: Notes/Report: 5.4% glycohemoglobin 5.4% 5 - 6.5 % P-Comprehensive Metabolic Pa patrick (CMP) Reviewed date:10/03/2023 04:39:44 PM Interpretation:bun 24, alk phos 136 Performing Lab: Notes/Report: Test performed by [facility] [address] [place] [address] , [address], [place] [address] Chris Dubois MD, Associate Professor Of Surgery CLIA: [id number] Sodium 140 135-145 mmol/L Potassium 5.0 3.5-5.3 mmol/L Chloride 101 97-108 mmol/L CO2 25 22-32 mmol/L Glucose 98 65-99 mg/dL BUN 24 8-23 mg/dL Creatinine 0.90 0.50-1.00 mg/dL Calcium 10.3 8.6-10.4 mg/dL eGFR by Creatinine 73 >59 mL/min/1.73m2 Protein 6.7 6.0-8.3 g/dL Albumin 4.5 3.5-5.3 g/dL Alkaline Phosphatase 136 35-121 IU/L ALT (SGPT) 23 <5-47 IU/L AST (SGOT) 20 <5-40 IU/L Bilirubin, Total 0.4 <0.2-1.2 mg/dL A/G Ratio 2.0 1.1-2.5 mg/dL P-Lipid Panel Reviewed date:10/03/2023 04:39:09 PM Interpretation:chol 282, trigs 229, hdl 38, chol/hdl 7.42, non-hdl 244, ldl 198, ldl/hdl 5.2 Performing Lab: Notes/Report: Test performed by [facility], [address] , [place] [address] Chris Dubois MD, Associate Professor Of Surgery CLIA: [id number] Cholesterol 282 <200 mg/dL Triglycerides 229 <150 mg/dL HDL Cholesterol 38 >39 mg/dL Cholesterol / HDL Ratio 7.42 0.00-4.44 Ratio Non-HDL Cholesterol 244 <130 mg/dL LDL Cholesterol (Calculation) 198 <130 mg/dL LDL Cholesterol Levels* Less than 100 mg/dL Optimal 100 to 129 mg/dL Near Optimal/ Above Optimal 130 to 159 mg/dL Borderline High 160 to 189 mg/dL High 190 mg/dL and above Very High * Categories as recommended by the 2004 ATPIII guidelines LDL/HDL Ratio 5.2 <3.3 Ratio LDL Cholesterol Patient History Test Date: 10/02/2023 LDL Results: 198 Units: mg/dL % Change: - P-TSH Reviewed date:10/03/2023 04:39:26 PM Interpretation:Normal Performing Lab: Notes/Report: Test performed by [facility] [address] [place] [address] , [address], [place] [address] Chris Dubois MD, Associate Professor Of Surgery CLIA: [id number] TSH 2.07 0.43-5.25 mU/L Urinalysis - Inhouse Reviewed date:09/19/2023 01:47:15 PM Interpretation: Performing Lab: Notes/Report: Color/Clarity yellow/clear Leuk neg Nitrite neg Urobili 3.2 Protein neg pH 5.5 Blood neg Sp. Gr. 1.015 Ketone neg Bili neg Gluc neg Influenza Screen (in house) Reviewed date:01/08/2024 01:07:14 PM Interpretation:neg Performing Lab: Notes/Report: neg results neg Rapid Strep- Inhouse Reviewed date:01/23/2024 10:17:29 AM Interpretation:neg Performing Lab: Notes/Report: neg strep test neg Covid test (in house) Reviewed date:01/08/2024 01:07:04 PM Interpretation:neg Performing Lab: Notes/Report: neg Result: neg Influenza Screen (in house) Reviewed date:02/09/2024 01:47:43 PM Interpretation:neg Performing Lab: Notes/Report: neg results neg CBC Fingerstick (in house) Reviewed date:02/09/2024 01:47:51 PM Interpretation: Performing Lab: Notes/Report: wbc 12.9 3.5 - 10 lym 25.2 15 - 50 mid 6.5 2 - 15 gran 68.3 35 - 80 rbc 4.58 3.5 - 5.5 hgb 14.6 11.5 - 16.5 hct 44.1 35 - 55 mcv 96.3 75 - 100 mch 32.0 25 - 35 mchc 33.2 31 - 38 plat 181 100 - 400 Covid test (in house) Reviewed date:02/09/2024 01:47:36 PM Interpretation:neg Performing Lab: Notes/Report: neg Result: neg Mammogram Reviewed date:08/22/2024 08:40:42 AM Interpretation:needs additional imaging Performing Lab: Notes/Report: needs additional imaging Reason For Referral No Information Medications Medication SIG (Take, Route, Frequency, Duration) Notes Start Date End Date Status Rosuvastatin Calcium 20 MG 1 tab(s) oral ly once a day Active Triamterene-HCTZ 37.5-25 MG 1 tablet in the morning Orally Once a day Active Vitamin B12 1000 MCG 1 tablet Orally Onc e a day 03/10/2023 Active Metoprolol Succinate ER 50 MG 2 tabs Orally Once a day Act deanne Lisinopril 20 MG 2 tab(s) orally At B ed Time for 90 days Active Immunizations Vaccine Route Administration Date Status Comme nts Hepatitis A (adult) Unknown 02/26/2018 Administered Fluzone PF Quad (6-35 months) Unknown 02/14/2020 Admini stered COVID 19 Pfizer Unknown 03/30/2020 Administered COVID 19 Pfizer Unknown 04/20/2020 Administered COVID 19 Pfizer Unknown 02/05/2021 Administered Social History Tobacco Use: Social History Observation Description Date Details (start date - stop date) Current Smoker NA - NA CURRENT TOBACCO USE: Question Answer Notes Are you a: current every day smoker 5 Cigar ettes Per Day Problems Problem Type SNOMED Code ICD Code Onset Dates Problem Status W/U Status Risk Notes Problem HTN (hypertension) (I10) Active confirmed Problem Hyperlipidemia (48674774) Hyperlipidemia (E78.5) Active confirmed Problem [id number] Abnormal mammogram (R92.8) Active confirmed Problem Seasonal allergy (192389040) Seasonal allergies (J30.2) Active confirmed Problem 07427695 Hyperlipidemia, unspecified hyperlipidemia type (E78.5) Active confirmed Problem 06406366 Primary hypertension (I10) Active confirmed Vital Signs Heart Rate 69 /min 08/02/2024 Blood pressure diastolic 80 mm Hg 08/02/2024 Height 61 in 08/02/2024 Blood pressure systolic 130 mm Hg 08/02/2024 Weight 134.8 lbs 08/02/2024 BMI 25.47 kg/m2 08/02/2024 Encounters [facility] Date [facility] [address] [facility] [address] [facility] [address] [place] [id number] 09/19/2023 Regina Bustamante Primary hypertension I10 ; Tobacco use Z72.0 ; Hyperlipidemia, unspecified hyperlipidemia type E78.5 ; Vitamin B12 deficiency E53.8 and Dysuria R30.0 [facility] [address] [place], [place] [id number] 01/08/2024 Regina Bustamante URI (upper respirato ry infection) J06.9 [facility] [address] [place], [place] [id number] 02/09/2024 Alie Crowdy Acute URI J06.9 [facility] [address] [place], [place] [id number] 05/21/2024 R Dev Madelaine Middle ear effusion H65.90 and Seasonal allergies J30.2 [facility] [address] [place], [place] [id number] 06/12/2024 Alie Crowdy Non-recurrent acute serous otitis media of both ears H65.03 [facility] [address] [place], [place] [id number] 07/26/2024 Will King Primary hypertension I10 [facility] [address] [facility] [address] [place], [place] [id number] 08/02/2024 Will King Primary hypertension I10 and Hyperlipidemia, unspecified hyperlipidemia type E78.5 [facility] [address] [place], [place] [id number] 10/02/2023 Regina Bustamante Primary hypertension I10 ; Tobacco use Z72.0 ; Hyperlipidemia, unspecified hyperlipidemia type E78.5 ; Diabetes mellitus screening Z13.1 ; Thyroid disorder screen Z13.29 ; Dizziness R42 and Colon cancer screening Z12.11 [facility] [address] [place], [place] [id number] 11/09/2023 Regina Bustamante [facility] [address] [place], [place] [id number] 07/26/2024 Capri Ward [facility] [address] [place], [place] [id number] 08/06/2024 Will King [facility] [address] [place], [place] [id number] 08/22/2024 Capri Ward Abnormal mammogram R92.8 Assessments Encounter Date Diagnosis (ICD Code) Assessment Notes Treatment Notes Treatment Clinical Notes Section Notes 09/19/2023 Tobacco use (ICD-10 - Z72.0) discussed smoking cessation 09/19/2023 Primary hypertension (ICD-10 - I10) discussed low salt diet; will monitor BP at home and bring to next OV; will go home and take her BP meds 10/02/2023 Tobacco use (ICD-10 - Z72.0) again encouraged cessation 10/02/2023 Primary hypertension (ICD-10 - I10) 01/08/2024 URI (upper respiratory infection) (ICD-10 - J06.9) fluids, rest, supportive measures for fever/symptom relief; lots of vit C; OtC decongestants andcough med prn; gargle prn 02/09/2024 Acute URI (ICD-10 - J06.9) 05/21/2024 Seasonal allergies (ICD-10 - J30.2) Continue Zyrtec and Flonase 05/21/2024 Middle ear effusion (ICD-10 - H65.90) 06/12/2024 Non-recurrent acute serous otitis media of both ears (ICD-10 - H65.03) 07/26/2024 Primary hypertension (ICD-10 - I10) 08/02/2024 Hyperlipidemia, unspecified hyperlipidemia type (ICD-10 - E78.5) 08/02/2024 Primary hypertension (ICD-10 - I10) 08/22/2024 Abnormal mammogram (ICD-10 - R92.8) 10/02/2023 Hyperlipidemia, unspecified hyperlipidemia type (ICD-10 - E78.5) she will continue to monitor BP at home 09/19/2023 Hyperlipidemia, unspecified hyperlipidemia type (ICD-10 - E78.5) 09/19/2023 Vitamin B12 deficiency (ICD-10 - E53.8) 10/02/2023 Diabetes mellitus screening (ICD-10 - Z13.1) 10/02/2023 Thyroid disorder screen (ICD-10 - Z13.29) 09/19/2023 Dysuria (ICD-10 - R30.0) better water intake ; UA is negative 10/02/2023 Dizziness (ICD-10 - R42) 10/02/2023 Colon cancer screening (ICD-10 - Z12.11) Plan Of Treatment Pending Test Test Name Order Date Ultrasound : Breast, left 08/22/2024 Carotid Duplex 11/24/2022 Cologuard 10/02/2023 Next Appt Details Provider Name:Will montanez, 02/03/2025 10:15:00 AM, [address] [facility], [address], [place], [place], [id number], Medications Administered Medication Instructions Date of Administration Dosage Notes B-12 03/10/2023 1 mL Medical (General) History Medical History History ICD Code Hypertension Hyperlipidemia Allergic Rhinitis Has seen Dr. Jackson [facility] heart [facility] Surgical History Surgery Date(Month/Year) Cholecystectomy 2014 Hysterectomy 2012
== END 2024-09-02 23:59 | disposition home or self-care (01) ==
LOC: RAD 12:20
PROVIDERS: PCP Family Medicine; Visit Provider Family Medicine
DX: N60.02 Solitary cyst of left breast (principal); N63.25 Unspecified lump in the left breast, overlapping quadrants
CPT/HCPCS: 76641